=== PATIENT | male | born 1995 | race Caucasian/White ===

== ENCOUNTER 2018-02-09 18:23 | Outpatient (CLI) ==
[2015-08-07 14:23] VITALS: BMI 30.7
== END 2018-02-09 18:24 | disposition left against medical advice (07) ==
LOC: AMBL 18:23
PROVIDERS: ATTEND Internal Medicine
DX: Z04.3 Encounter for examination and observation following other accident (principal); V89.2XXA Person injured in unspecified motor-vehicle accident, traffic, initial encounter